=== PATIENT | female | born 1995 | race Two or more races ===

== ENCOUNTER 2017-05-03 10:17 | Emergency (ER) | payer MEDICAID ==
[~2017-05-03] VITALS: Ht 162.6 cm; Wt 57.1 kg
[2017-05-03] MEDS ORDERED: SODIUM CHLORIDE 0.9% 1,000 ML IV ONE (12:43)
[2017-05-03] MEDS ORDERED: SODIUM CHLORIDE FLUSH 10ML SYR IVF ONE (13:00)
[2017-05-03] MEDS ORDERED: SODIUM CHLORIDE 0.9% 1,000ML IVBOLUS ONE (13:00)
[2017-05-03] MEDS ORDERED: ONDANSETRON 2MG/ML, 2ML IVPush ONE (13:00)
[2017-05-03 13:01] LABS: HEMATOCRIT 38.3 % (34.6-47.8); HEMOGLOBIN 12.8 g/dL (11.7-16.4); WHITE BLOOD COUNT 8.3 x10^3/uL (3.4-10)
[2017-05-03 13:13] LABS: BLOOD UREA NITROGEN 10 mg/dL (7-18)
[2017-05-03 13:32] LABS: ASPARTATE AMINO TRANSFERASE 9 U/L (15-37)
[2017-05-03 14:51] VITALS: BP 111/78
== END 2017-05-03 15:44 | disposition home or self-care (01) ==
LOC: ED 12:35
DX: O21.0 Mild hyperemesis gravidarum (principal); R19.7 Diarrhea, unspecified; Z3A.08 8 weeks gestation of pregnancy
CPT/HCPCS: 36415; 76801; 80053; 81001; 84702; 85025; 87086; 96361; 96374; 99285; J2405; J7030